=== PATIENT | female | born 1945 | race Caucasian/White ===

== ENCOUNTER → 2017-01-16 15:22 | Emergency (ER) | payer MEDICARE ==
[2017-01-16 15:35] VITALS: BP 151/77
--- NOTE | 2017-01-16 16:49 | ED ---
Throat Pain/Nasal Congestion - HPI Summary HPI Summary: 71 female presents with complaints of waking up form her nap with a bruised left eye that she does not know where it came from. Patient denies any recent known trauma or injury. Was wearing her glasses during her nap. Denies any pain , visual changes, discharge or headache. States the side of her eye and eye lid or just bruised and slightly swollen. Denies any other complaints at this time. - History of Current Complaint Chief Complaint: EDEyeProblem Time Seen by Provider: 01/16/17 16:24 Hx Obtained From: Patient Onset/Duration: Sudden Onset - Allergies/Home Medications Allergies/Adverse Reactions: Allergies Allergy/AdvReac Type Severity Reaction Status Date / Time Penicillins Allergy Hives Verified 01/26/14 13:59 PMH/Surg Hx/FS Hx/Imm Hx Endocrine/Hematology History: Denies: Hx Diabetes Cardiovascular History: Denies: Hx Hypertension, Hx Pacemaker/ICD Musculoskeletal History: Denies: Hx Osteoporosis Sensory History: Denies: Hx Hearing Aid Psychiatric History: Denies: Hx Panic Disorder - Cancer History Hx Chemotherapy: No Hx Radiation Therapy: No - Surgical History Surgery Procedure, Year, and Place: STEREO LEFT BENIGN,hyster,gb - Immunization History Immunizations Up to Date: Yes Infectious Disease History: Denies: Traveled Outside the [place] in Last 30 Days - Family History Known Family History: Positive: None - Social History Alcohol Use: Occasionally Substance Use Type: Reports: None Smoking Status (MU): Former Smoker Review of Systems Constitutional: Negative Positive: Other - bruised eyelid ENT: Negative Cardiovascular: Negative Respiratory: Negative Gastrointestinal: Negative Musculoskeletal: Negative Positive: Bruising - left eyelid Neurological: Negative All Other Systems Reviewed And Are Negative: Yes Physical Exam Triage Information Reviewed: Yes Vital Signs On Initial Exam: Initial Vitals Temp Pulse Resp BP Pulse Ox 98.2 F 76 16 151/77 97 01/16/17 15:32 01/16/17 15:32 01/16/17 15:32 01/16/17 15:32 01/16/17 15:32 Vital Signs Reviewed: Yes Appearance: Positive: Well-Appearing, No Pain Distress, Well-Nourished Skin: Positive: Warm, Skin Color Reflects Adequate Perfusion, Dry, Other - ecchymosis noted at left lateral eye periorbital area and lateral corner of eyelid, minimal to no tenderness on palpation. not raised. rest of skin exam normal. no discharge. Head/Face: Positive: Normal Head/Face Inspection - besides bruising at eye Eyes: Positive: Normal, EOMI, DOMI, Conjunctiva Clear, Other: - fundoscopic exam normal. Negative: Conjunctiva Inflammed, Discharge ENT: Positive: Normal ENT inspection, Hearing grossly normal, Pharynx normal, TMs normal Neck: Positive: Supple, Nontender, No Lymphadenopathy Respiratory/Lung Sounds: Positive: Clear to Auscultation, Breath Sounds Present. Negative: Rales, Rhonchi, Wheezes Cardiovascular: Positive: Normal, RRR, Pulses are Symmetrical in both Upper and Lower Extremities. Negative: Murmur, Rub Bowel Sounds: Positive: Present Musculoskeletal: Positive: Normal, Strength/ROM Intact Neurological: Positive: Normal, Sensory/Motor Intact, Alert, Oriented to Person Place, Time, CN Intact II-III, Reflexes Intact, NV Bundle Intact Distally, Normal Gait Psychiatric: Positive: Affect/Mood Appropriate AVPU Assessment: Alert - Brijesh Coma Scale Best Eye Response: 4 - Spontaneous Best Motor Response: 6 - Obeys Commands Best Verbal Response: 5 - Oriented Diagnostics - Vital Signs Vital Signs Temp Pulse Resp BP Pulse Ox 01/16/17 15:32 98.2 F 76 16 151/77 97 - Laboratory Lab Statement: Any lab studies that have been ordered have been reviewed, and results considered in the medical decision making process. EENT Course/Dx - Course Course Of Treatment: due to HPI and PE findings unknown etiology for patients bruise. Possibly injured while sleeping or blown blood vessel. Patient was educated on worsening symptoms to watch out for. Has an appointment with Optho for a follow up on Thursday and was told to discuss and follow up. Ice and ibuprofen for swelling. - Differential Diagnoses Differential Diagnoses: Contusion, Fracture, Laceration, Trauma, Other - bug bite - Diagnoses Provider Diagnoses: Contusion, eye, left Discharge - Discharge Plan Condition: Stable Disposition: HOME Patient Education Materials: Contusion in Adults (ED) Referrals: Wilver Sanchez MD [Primary Care Provider] - Additional Instructions: Apply cool compresses to the eye. If new symptoms develop or symptoms are worsening please return. 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
== END | disposition home or self-care (01) ==
LOC: ED 15:22
DX: S05.12XA Contusion of eyeball and orbital tissues, left eye, initial encounter (principal); X58.XXXA Exposure to other specified factors, initial encounter; Y93.9 Activity, unspecified; Y92.9 Unspecified place or not applicable; Z88.0 Allergy status to penicillin; Z87.891 Personal history of nicotine dependence
CPT/HCPCS: 99281

== ENCOUNTER 2020-04-19 12:15 | Inpatient (IN) ==
[~2020-04-19 12:15] MED LIST: Buffered Lidocaine 1% SYRIN 1 ml INTRADERM ONE; Famotidine IV 10 MG/ML 2 ml VIAL (20 mg) IV ONE; Lactated Ringers 1000 ml BAG 1,000 ML IV SCH; Sodium Citrate/Citric Acid LIQ 15 ML UDC PO ONE
[2020-04-19] MEDS ORDERED: Sodium Citrate/Citric Acid LIQ 15 ML UDC ONE (13:07)
[2020-04-19] MEDS ORDERED: Clindamycin 900 MG/D5W BAG 900 MG/50 ML BAG IVPB ONE (13:08)
[2020-04-19] MEDS ORDERED: Famotidine IV 10 MG/ML 2 ml VIAL (20 mg) ONE (13:08)
[2020-04-19] MEDS ORDERED: Buffered Lidocaine 1% SYRIN 1 ml INTRADERM ONE (13:08)
[2020-04-19] MEDS ORDERED: Lidocaine 2% PF 5 ML VIAL ONE (13:11)
[2020-04-19] MEDS ORDERED: Midazolam 2 mg/2 ml VIAL 1 mg/ml 2 ml VIAL (2 mg) ONE (13:44)
[2020-04-19] MEDS ORDERED: ROPIVACAINE 5 MG/ML 30 ML BTL (0.5%) ONE ×2 (14:29→14:42)
[2020-04-19] MEDS ORDERED: Lidocaine 1% MPF 5 ML VIAL ONE (14:29)
[2020-04-19] MEDS ORDERED: fentaNYL 100 mcg/2 ml 50 MCG/ML VIAL ONE ×2 (15:32→17:48)
[2020-04-19] MEDS ORDERED: Ketamine HCL 50 mg/ml 10 ml VIAL (500 MG) ONE (15:57)
[2020-04-19] MEDS ORDERED: Ondansetron 4 mg VIAL 2 MG/ML 2 ml VIAL IV PRN (16:12)
[2020-04-19] MEDS ORDERED: Ondansetron ODT 4 mg TAB 4 MG TAB PO PRN (16:12)
[2020-04-19] MEDS ORDERED: diPHENhydraMINE IV 50 MG/ML 1 ml VIAL (BENADRYL) IV PRN (16:12)
[2020-04-19] MEDS ORDERED: Lactulose 30 ml UDC PO PRN (16:12)
[2020-04-19] MEDS ORDERED: diPHENhydraMINE 25 mg TAB PO PRN (16:12)
[2020-04-19] MEDS ORDERED: oxyCODONE/Acetamin 5/325 mg TAB PO PRN (16:12)
[2020-04-19] MEDS ORDERED: Magnesium Hydroxide LIQ 30 ML UDC PO PRN (16:12)
[2020-04-19] MEDS ORDERED: Morphine 2 MG/ML SYRINGE IV PRN (16:12)
[2020-04-19] MEDS ORDERED: HYDROmorphone 1 MG/1 ML SYRINGE ONE (16:40)
[2020-04-19] MEDS ORDERED: Propofol 10 MG/ML 20 ML BTL ONE (16:42)
[2020-04-19] MEDS ORDERED: Lactated Ringers 1000 ml BAG 1,000 ML IV SCH (17:00)
[2020-04-19] MEDS ORDERED: Glycopyrrolate IV 0.2 MG/ML 1 ML VIAL ONE (17:01)
[2020-04-19] MEDS ORDERED: Naloxone 0.4 mg VIAL 0.4 mg/ml 1 ml VIAL IV PRN (17:42)
[2020-04-19] MEDS ORDERED: fentaNYL 100 mcg/2 ml 50 MCG/ML VIAL IV PRN (17:42)
[2020-04-19] MEDS ORDERED: oxyCODONE/Acetamin 5/325 mg TAB ONE (17:56)
[2020-04-19] MEDS: oxyCODONE/Acetamin 5/325 mg TAB PO PRN (18:03)
[2020-04-19] MEDS: Magnesium Hydroxide LIQ 30 ML UDC PO SCH (22:11)
[2020-04-20] MEDS: Clindamycin 600 MG/D5W BAG 600 MG/50 ML BAG IV SCH ×2 (00:27→08:02)
[2020-04-20] MEDS: oxyCODONE/Acetamin 5/325 mg TAB PO PRN (06:19)
[2020-04-20] MEDS: Magnesium Hydroxide LIQ 30 ML UDC PO SCH (08:02)
[2020-04-20 08:05] VITALS: BP 108/54
[2020-04-20] MEDS ORDERED: Vitamin THERAPEUTIC TAB PO SCH (09:00)
[2020-04-20 09:07] LABS: Hematocrit 34 % (35-47); Hemoglobin 11.1 g/dL (12.0-16.0); Mean Platelet Volume 8.5 fL (7.4-10.4); Platelet Count 244 10^3/uL (150-450)
[2020-04-20 09:23] LABS: BUN/Creatinine Ratio 20.8 (8-20); Calcium 9.6 mg/dL (8.6-10.3); EGFR African American 68.9 (>60); Potassium 3.8 mmol/L (3.5-5.0)
[2020-04-20] MEDS ORDERED: GLYCERIN OPHTHALMIC SCH (18:00)
[2020-04-20] MEDS ORDERED: [UNRECOGNIZED DRUG - OTHER] OPHTHALMIC SCH (18:00)
== END 2020-04-20 11:30 | disposition home health service (06) | DRG 470 ==
LOC: AA 12:34 → SSU 16:12
PROVIDERS: ADMIT Orthopaedic Surgery Adult Reconstructive Orthopaedic Surgery; ATTEND Orthopaedic Surgery Adult Reconstructive Orthopaedic Surgery